=== PATIENT | male | born 1990 | race Caucasian/White ===

== ENCOUNTER 2025-05-06 04:23 | Emergency (ER) | payer OTHER ==
[~2025-05-06] VITALS: Ht 182.9 cm; Wt 97.0 kg
[2025-05-06 04:35] VITALS: TEMP 36.9; O2SAT 98
[2025-05-06] MEDS: IBUPROFEN 400MG TABLET PO ONE (07:05)
[2025-05-06] MEDS: HYDROCODONE/ACETAMINOPHEN 5/325MG TABLET PO ONE (07:05)
[2025-05-06] MEDS ORDERED: IBUP-2028 MT (08:34)
[2025-05-06] MEDS ORDERED: HYDR-4001 MT (08:34)
[2025-05-06 09:40] VITALS: BP 107/66; PULSE 68; RESP 18; O2SAT 100
== END 2025-05-06 09:43 | disposition home or self-care (01) ==
LOC: ER 04:23
DX: S82.141A Displaced bicondylar fracture of right tibia, initial encounter for closed fracture (principal); W01.0XXA Fall on same level from slipping, tripping and stumbling without subsequent striking against object, initial encounter; Y93.89 Activity, other specified; Y92.89 Other specified places as the place of occurrence of the external cause; Y99.8 Other external cause status
CPT/HCPCS: 29505; 73562; 73590; 99284